=== PATIENT | female | born 1970 | race Two or more races ===

== ENCOUNTER 2016-08-31 19:12 | Emergency (ER) | payer MEDICAID ==
--- NOTE | 2016-08-31 20:05 | ED Physician Chart ---
Chief Complaint/HPI - Patient Information Date Seen:: 08/31/16 Time Seen:: 19:30 Chief Complaint:: LEFT ANKLE AND FOOT INJURY History of Present Illness:: THIS IS A 46 YO FEMALE WHO STATES THAT SHE INJURED HER LEFT ANKLE ON WEEK AGO. SHE STATES THAT SHE HAS BEEN PUTTING AND ICE AND HEAT ON THE ANKLE BUT IT CONTINUES TO SWELL AND CAUSE HER PAIN. SHE DENIES ANY PREVIOUS INJURIES TO THE LEFT ANKLE AND FOOT. SHE IS CONCERNED BECAUSE HER FOOT SWELLING ALSO. Allergies:: Allergies Allergy/AdvReac Type Severity Reaction Status Date / Time No Known Allergies Allergy Verified 08/31/16 19:34 Vitals:: Vital Signs - 8 hr 08/31/16 19:20 Temp 98.2 F HR 68 RR 18 BP 150/83 O2 Sat % 99 Historian:: Patient Review:: Nurse's Note Reviewed Review of Systems - Review of Systems General/Constitutional: No fever, No chills, No weight loss, No weakness, No diaphoresis, No edema, No loss of appetite Skin: No skin lesions, No rash, No bruising Head: No headache, No light-headedness Eyes: No loss of vision, No pain, No diplopia ENT: No earache, No nasal drainage, No sore throat, No tinnitus Neck: No neck pain, No swelling, No thyromegaly, No stiffness, No mass noted Cardio Vascular: No chest pain, No palpitations, No PND, No orthopnea, No edema Pulmonary: No SOB, No cough, No sputum, No wheezing GI: No nausea, No vomiting, No diarrhea, No pain, No melena, No hematochezia, No constipation, No hematemesis G/U: No dysuria, No frequency, No hematuria Musculoskeletal: Bone or joint pain (THERE IS SWELLING AND TENDERNESS OF THE LEFT LATERAL MALLEOUS.), No back pain, No muscle pain Endocrine: No polyuria, No polydipsia Psychiatric: No prior psych history, No depression, No anxiety, No suicidal ideation Hematopoietic: No bruising, No lymphadenopathy Allergic/Immuno: No urticaria, No angioedema Neurological: No syncope, No focal symptoms, No weakness, No paresthesia, No headache, No seizure, No dizziness, No confusion, No vertigo Past Medical History - Past Medical History Past Medical History: No significant medical hx Family History: None Social History: Non Smoker, No Alcohol, No Drug Use Surgical History: None Psychiatricy History: None Medication: Reviewed Family Medical History - Family Member Mother History Unknown: Yes Physical Exam - Physical Examination General/Constitutional: Awake, Well-developed, well-nourished, Alert, No distress, GCS 15, Non-toxic appearing, Ambulatory Head: Atraumatic Eyes: Lids, conjuctiva normal, PERRL, EOMI Skin: Nl inspection, No rash, No skin lesions, No ecchymosis, Well hydrated, No lymphadenopathy ENMT: External ears, nose nl, Nasal exam nl, Lips, teeth, gums nl Neck: Nontender, Full ROM w/o pain, No JVD, No nuchal rigidity, No bruit, No mass, No stridor Respiratory: Nl effort/Exclusion, Clear to Auscultation, No Wheeze/Rhonchi/Rales Cardio Vascular: RRR, No murmur, gallop, rubs, NL S1 S2 GI: No tenderness/rebounding/guarding, No organomegaly, No hernia, Normal BS's, Nondistended, No mass/bruits, No McBurney tenderness : No CVA tenderness Extremities: No tenderness or effusion, Full ROM, normal strength in all extremities (LEFT LATERAL MALLEOUS AREA SWELLING AND TENDERNESS.), No edema, Normal digits & nails Neuro/Psych: Alert/oriented, DTR's symmetric, Normal sensory exam, Normal motor strength, Judgement/insight normal, Mood normal, Normal gait, No focal deficits Misc: normal gait, Normal back, No paraspinal tenderness Labs/Radiology/EKG Results - Radiology Results Results: X-RAY LEFT FOOT AND ANKLE WERE BOTH NEGATIVE FOR FRACTURES. ED Septic Shock - . Is Septic Shock (SBP<90, OR Lactate>4 mmol\L) present?: No - <6hrs of presentation: Vital Signs: Vital Signs - 8 hr 08/31/16 19:20 Temp 98.2 F HR 68 RR 18 BP 150/83 O2 Sat % 99 Reassessment (Disposition) - Reassessment Reassessment Condition:: Unchanged - Diagnosis Diagnosis:: SPRAINED LEFT ANKLE - Aftercare/Follow up Instructions Aftercare/Follow-Up Instructions:: Counseled pt regarding lab results/diagnosis & need follow up, Refer to Discharge Instructions, Counseled pt & family regarding lab results/diagnosis & need follow up Medication Prescribed:: MOTRIN - Patient Disposition Discharge/Transfer:: Home Condition at Disposition:: Improved ED Discharge Plan - Patient Disposition Admit/Discharge/Transfer: PT DISCHARGED HOME Condition at Disposition: Improved
--- NOTE | 2016-09-01 10:12 | Diagnostic Imaging Report ---
INDICATION: Pain FINDINGS: No fractures or dislocations. No erosions or periosteal reaction. Articular surfaces are smooth. No joint effusion. IMPRESSION: No acute bony pathology.[There is soft tissue swelling anterior to the ankle joint and dedicated views of the ankle may be considered.]
--- NOTE | 2016-09-01 10:12 | Diagnostic Imaging Report ---
INDICATION: Pain FINDINGS: No fractures or dislocations. No erosions or periosteal reaction. Articular surfaces are smooth. No joint effusion. IMPRESSION: No acute bony pathology.[Soft tissue swelling and possible effusion and adjacent to the joint.]
== END 2016-08-31 20:05 | disposition home or self-care (01) ==
LOC: ER 19:12
DX: S93.402A Sprain of unspecified ligament of left ankle, initial encounter (principal); X58.XXXA Exposure to other specified factors, initial encounter; Y93.89 Activity, other specified; Y92.89 Other specified places as the place of occurrence of the external cause; Y99.8 Other external cause status
CPT/HCPCS: 73610-TC; 73630-TC-LT; Z7502